=== PATIENT | female | born 1995 ===

== ENCOUNTER 2017-02-28 18:42 | Emergency (ER) | payer OTHER ==
[2017-02-28] MEDS ORDERED: Sodium Chloride 0.9% 1,000 ML IV ONE (19:40)
[2017-02-28] MEDS ORDERED: Alum-Mag Hydrox-Simethicone Susp (30 mL) PO STA ×2 (19:41→21:08)
[2017-02-28] MEDS ORDERED: Sodium Chloride 0.9% 1,000 ML ONE (19:59)
[2017-02-28 20:11] LABS: BASO % 0.3 % (0.0-2.0); EOS % 0.5 % (0.0-4.0); LYMPH # 1.4 K/uL (1.0-4.3); LYMPH % 34.5 % (20.0-40.0); MEAN CELL VOLUME 83.6 fL (81.0-99.0); MEAN CORPUSCULAR HEMOGLOBIN 27.2 pg (27.0-31.0); MEAN CORPUSCULAR HGB CONC 32.5 g/dL (33.0-37.0); MEAN PLATELET VOLUME 9.5 fL (7.2-11.7); MONO # 0.2 K/uL (0.0-0.8); MONO % 6.1 % (0.0-10.0); RED CELL DISTRIBUTION WIDTH 13.4 % (11.5-14.5)
[2017-02-28] MEDS ORDERED: Aluminum Hydroxide/Magnesium Hydroxide Susp (30 mL) ONE ×2 (20:11→21:10)
[2017-02-28 20:17] LABS: CHLORIDE 100 mmol/L (98-107)
[2017-02-28 20:18] LABS: POTASSIUM 4.1 mmol/L (3.6-5.2); SODIUM 138 mmol/L (132-148)
[2017-02-28 20:20] LABS: ALB/GLOB RATIO 1.5 (1.0-2.1); ALKALINE PHOSPHATASE 58 U/L (38-126); AST/SGOT 25 U/L (14-36); BILIRUBIN,TOTAL 0.3 mg/dL (0.2-1.3); CARBON DIOXIDE 24 mmol/L (22-30); GFR AFRICAN-AMERICAN > 60
[2017-02-28 20:21] LABS: ALCOHOL SERUM < 10 mg/dl (0-10); ALT/SGPT 23 U/L (9-52); BLOOD UREA NITROGEN 11 mg/dL (7-17); CALCIUM 9.1 mg/dl (8.6-10.4); GLUCOSE,RANDOM 89 mg/dL (65-105)
[2017-02-28 20:29] LABS: RBC URINE 5 /hpf (0-3); URINE BACTERIA FEW (<OCC); URINE BILIRUBIN NEGATIVE (NEGATIVE); URINE BLOOD NEGATIVE (NEGATIVE); URINE COLOR Straw (YELLOW); URINE GLUCOSE (UA) NORMAL (Normal); URINE KETONE NEGATIVE (NEGATIVE); URINE LEUKOCYTE ESTERASE 2+ Leu/uL (Negative); URINE PROTEIN NEGATIVE (NEGATIVE); URINE UROBILINOGEN NORMAL mg/dL (0.2-1.0); WBC URINE 22 /hpf (0-5)
[2017-02-28 20:39] VITALS: RESP 18; TEMP 98.2; O2SAT 100
[2017-02-28 21:17] VITALS: BP 112/74; PULSE 78
--- NOTE | 2017-02-28 21:37 | RAD ---
PROCEDURE: Radiographs of the chest and abdomen (obstructive series) HISTORY: abd pain COMPARISON: None available. TECHNIQUE: AP radiograph of the chest, with upright and supine radiographs of the abdomen. FINDINGS: CHEST: Heart size appears within normal limits. No focal consolidation, significant pleural effusion, or definite pneumothorax identified.Please note that chest x-ray has limited sensitivity for the detection of pulmonary masses. ABDOMEN AND PELVIS: Moderate constipation predominantly within the right and transverse colon. No definite free air. Nonobstructive bowel gas pattern. No acute osseous abnormality is detected. IMPRESSION: Moderate constipation.
--- NOTE | 2017-03-01 00:57 | C.PDOC ---
History Of Present Illness A 21 year old female presents to the emergency room with complaints of burping and epigastric discomfort for 1 week. Patient reports that she was seen by her PMD 4 days ago and was prescribed Ranitidine (2x daily). Patient notes no improvement and is requesting imaging of her stomach. Patient denies any chest pain, shortness of breath, headaches, dizziness, fever, nausea, vomiting, diarrhea, or any other complaints. Time Seen by Provider: 02/28/17 19:31 Chief Complaint (Nursing): GI Problem History Per: Patient History/Exam Limitations: no limitations Onset/Duration Of Symptoms: Other (1 week) Current Symptoms Are (Timing): Still Present Severity: Mild Recent travel outside of the [place]: No Past Medical History Reviewed: Historical Data, Nursing Documentation, Vital Signs Vital Signs: Last Vital Signs Temp 98.2 F 02/28/17 20:00 Pulse 78 02/28/17 21:15 Resp 18 02/28/17 21:15 BP 112/74 02/28/17 21:15 Pulse Ox 100 03/02/17 18:04 - Medical History PMH: Gastritis Family History: States: No Known Family Hx - Social History Hx Alcohol Use: No Hx Substance Use: No - Immunization History Hx Tetanus Toxoid Vaccination: No Hx Influenza Vaccination: No Hx Pneumococcal Vaccination: No Review Of Systems Except As Marked, All Systems Reviewed And Found Negative. Constitutional: Negative for: Fever, Chills Cardiovascular: Negative for: Chest Pain Respiratory: Negative for: Shortness of Breath Gastrointestinal: Positive for: Abdominal Pain (Epigastric discomfort), Other ( Burping ). Negative for: Nausea, Vomiting, Diarrhea Neurological: Negative for: Headache, Dizziness Physical Exam - Physical Exam Appears: Well, Non-toxic, No Acute Distress Skin: Normal Color, Warm, Dry Head: Atraumatic, Normacephalic Eye(s): bilateral: Normal Inspection Neck: Normal ROM, Supple Cardiovascular: Rhythm Regular Respiratory: Normal Breath Sounds, No Rales, No Rhonchi, No Wheezing Gastrointestinal/Abdominal: Tenderness (Mild epigastric tenderness), Other ( Burping repetitively) Extremity: Normal ROM, No Tenderness Neurological/Psych: Oriented x3, Normal Speech ED Course And Treatment - Laboratory Results Result Diagrams: 02/28/17 20:00 02/28/17 19:40 O2 Sat by Pulse Oximetry: 100 Disposition Doctor Will See Patient In The: Office Counseled Patient/Family Regarding: Studies Performed, Diagnosis - Disposition Referrals: [facility] [Outside] Disposition: HOME/ ROUTINE Disposition Time: 21:00 Condition: GOOD Additional Instructions: Continue Ranitidine twice a day (9AM and 9PM) Continue Maalox 30 cc (one tablespoon) 5x/day without water (coats the stomach) Observe a diet that avoids increased stomach acid- avoid chocolate, coffee, spicy food, fried foods, alcohol, etc Follow-up with Dr. Donovan or our outpatient Clinic Consider outpatient evaluation by a Category Development Manager to consider upper endoscopy. Instructions: Gastritis (ED) - Clinical Impression Clinical Impression: GERD (gastroesophageal reflux disease) - Scribe Statement The provider has reviewed the documentation as recorded by the Jonny Casillas Provider Scribe Attestation: All medical record entries made by the Christoibe were at my direction and personally dictated by me. I have reviewed the chart and agree that the record accurately reflects my personal performance of the history, physical exam, medical decision making, and the department course for this patient. I have also personally directed, reviewed, and agree with the discharge instructions and disposition.
== END 2017-02-28 21:18 | disposition home or self-care (01) ==
LOC: C.ER 18:42
DX: K21.9 Gastro-esophageal reflux disease without esophagitis (principal)
CPT/HCPCS: 74022; 80053; 80320; 80324; 80345; 80346; 80349; 80353; 80358; 80361; 81001; 83690; 83992; 84703; 85025; 96361; 96374; 96375; 99285; J2405; J7040